=== PATIENT | female | born 1995 | race Caucasian/White ===

== ENCOUNTER 2020-05-08 08:49 | Emergency (ER) | payer BC ==
[~2020-05-08] VITALS: Ht 165.1 cm; Wt 97.1 kg
[2020-05-08] MEDS ORDERED: LORazepam 2 MG/ML, 1ML ONE ×3 (09:28→11:59)
[2020-05-08] MEDS ORDERED: LORazepam 2 MG/ML, 1ML IM ONE (09:30)
[2020-05-08 10:10] LABS: BASOPHILS % (AUTO) 1 % (0-1); EOSINOPHILS % (AUTO) 0 % (1-7); LYMPHOCYTES % (AUTO) 20 % (22-44); MEAN CORPUSCULAR HGB CONC 34.3 g/dL (32.4-35.8); MONOCYTES % (AUTO) 7 % (2-9); NEUTROPHILS % (AUTO) 72 % (42-75); PLATELET COUNT 346 x10^3/uL (130-400); RED BLOOD COUNT 4.17 x10^6/uL (3.82-5.3); RED CELL DISTRIBUTION WIDTH 13.9 % (9.6-15.2)
[2020-05-08 10:13] LABS: ALANINE AMINOTRANSFERASE 57 U/L (12-78); ALBUMIN 3.7 g/dL (3.4-5.0); ANION GAP 14 mmol/L (5-15); CALCIUM 8.1 mg/dL (8.5-10.1); CHLORIDE 109 mmol/L (98-107); MD NO
[2020-05-08 10:16] LABS: % IRON SATURATION 43 % (20-55); ALKALINE PHOSPHATASE 61 U/L (45-117); BILIRUBIN,TOTAL 0.3 mg/dL (0.2-1.0); IRON LEVEL 169 mcg/dL (50-170); TOTAL IRON BINDING CAPACITY 389 mcg/dL (250-450)
[2020-05-08 10:22] LABS: TRANSFERRIN 310 mg/dL (200-360)
[2020-05-08] MEDS ORDERED: FOLIC ACID IV ONE (11:00)
[2020-05-08] MEDS ORDERED: SODIUM CHLORIDE FLUSH 10ML SYR IVF ONE (11:00)
[2020-05-08] MEDS ORDERED: MAGNESIUM SULFATE IV ONE (11:00)
[2020-05-08] MEDS ORDERED: [UNRECOGNIZED DRUG - OTHER] IV ONE (11:00)
[2020-05-08] MEDS ORDERED: THIAMINE IV ONE (11:00)
[2020-05-08] MEDS ORDERED: SODIUM CHLORIDE 0.9% 1,000ML IVBOLUS ONE (11:00)
[2020-05-08] MEDS: LORazepam 2 MG/ML, 1ML IVPush PRN ×2 (11:01→12:04)
--- NOTE | 2020-05-08 11:43 | NUR ---
PT RESTING COMFORTABLY. FAMILY AT BEDSIDE.
[2020-05-08] MEDS ORDERED: LORazepam 2 MG/ML, 1ML IV ONE (12:00)
[2020-05-08 12:33] LABS: ACETONE, SERUM Trace (Negative)
[2020-05-08 12:59] VITALS: BP 145/95
== END 2020-05-08 13:07 | disposition home or self-care (01) ==
LOC: ED 10:08
DX: F41.1 Generalized anxiety disorder (principal); E86.0 Dehydration; F10.239 Alcohol dependence with withdrawal, unspecified; Y90.9 Presence of alcohol in blood, level not specified
CPT/HCPCS: 36415; 71045; 80053; 82010; 82728; 82800; 83540; 83550; 83735; 84443; 84466; 84703; 85025; 93005; 96365; 96366; 96372; 96375; 96376; 99285; J2060; J3411; J3475; J7030